=== PATIENT | female | born 1995 | race Caucasian/White ===

== ENCOUNTER 2017-12-13 15:56 | Emergency (ER) | payer OTHER ==
[2017-12-13 16:00] VITALS: BP 120/84; BMI 20.7
[2017-12-13] MEDS ORDERED: ZOFRAN INJ 4 MG VIAL ONE (16:11)
[2017-12-13] MEDS ORDERED: TORADOL 30 MG VIAL ONE (16:11)
[2017-12-13] MEDS ORDERED: ZOFRAN INJ 4 MG VIAL IVP ONE (16:16)
[2017-12-13] MEDS ORDERED: NS 1000 ML 1,000 ML IV ONE (16:16)
[2017-12-13] MEDS ORDERED: TORADOL 30 MG VIAL IVP ONE (16:17)
--- NOTE | 2017-12-13 16:32 | DR.GENAD ---
HPI - PCP Primary Care Physician: PRAKASH OSPINA - Complaint/Symptoms Chief Complaint Doctors Comments: Patient presents with complaint of probable kidney stones of the right side. She had stones in 2012, lithotrypsy performed in [place]. She admits to similar pain as previous. Right side pain unable to void. Pain 10/10, sharp, continuous. Chief Complaint:: PATIENT STATED THAT SHE IS HAVING BACK PAIN. SHE STATED THAT SHE HAS HAD KIDNEY STONES REGULAR IN THE PAST. THIS ALL STARTED A HOUR AGO. - Source History Provided: Patient - Mode of Arrival Mode of Arrival: Ambulatory - Timing Onset of Chief Complaint: 12/13/17 PMH - PMH Past Medical History: Yes Past Medical History: Kidney Stones Past Surgical History: No - Family History History of Family Medical Conditions: Yes Family Medical History Comment: KIDNEY STONES - Social History Does patient currently use any type of tobacco product: No Have you used tobacco products in the last 12 months: No Type of Tobacco Use: None Does any household member use tobacco: No Alcohol Use: Occasionally Do you use any recreational Drugs:: No Lives With: Family Lives Where: Home - infectious screening In the last 2 months have you had wt loss of >10#?: NO Have you had fever, night sweats or hemotysis?: No Have you traveled outside the country in the last 6 months?: No Isolation: Standard ROS - Review of Systems Eyes: No Symptoms Reported ENTM: No Symptoms Reported Respiratoy: No Symptoms Reported Cardiovascular: No Symptoms Reported Gastrointestinal/Abdominal: No Symptoms Reported Genitourinary: No Symptoms Reported Neurological: No Symptoms Reported Musculoskeletal: No Symptoms Reported Integumentary: No Symptoms Reported Hematologic/Lymphatic: No Symptoms Reported Endocrine: No Symptoms Reported Psychiatric: No Symptoms Reported All Other Systems: Reviewed and Negative PE - Vital Signs Vitals: Temperature 98.2 F Pulse Rate 103 Respiratory Rate 20 Blood Pressure 120/84 O2 Sat by Pulse Oximetry 98 - General General Appearance: Alert, In No Apparent Distress - Head Head Exam: Normal Inspection, Atraumatic - Eyes Eye exam: Normal Appearance, PERRL, EOMI - ENT ENT Exam: Normal Exam External Ear Exam: Normal External Inspection TM/Canal Exam: Bilateral Normal Nose Exam: Normal Nose Exam Mouth Exam: Normal Inspection Throat Exam: Normal Inspection - Neck Neck Exam: Normal Inspection, Full ROM - Chest Chest Inspection: Normal Inspection - Respiratory Respiratory Exam: Normal Lung Sounds Bilat, Accessory Muscle Use Respiratory Exam: Bilateral Clear to Auscultation - Cardiovascular Cardiovascular Exam: Regular Rate, Normal Rhythm - Abdominal Exam Abdominal Exam: Normal Inspection Abdominal Tenderness: negative: RUQ, RLQ, LUQ, LLQ, Epigastrium, Suprapubic, Diffuse, Mild, Moderate, Severe, Other - Extremities Extremities Exam: Normal Inspection - Back Back Exam: Normal Inspection, (R) CVA Tenderness - Neurologic Neurological Exam: Alert, Oriented X3, CN II-XII Intact - Psychiatric Psychiatric Exam: Normal Affect, Normal Mood - Skin Skin Exam: Warm, Dry, Intact Course - Treatment Treatment: Morphine 4mg, toradol 30mg IV - Reevaluation 1st: Improved ROR - XRAY XRAY Interpreted by: Radiologist (CT Abd/Pel: 2mm stone in the distal right ureter without significant obstructive uropathy. Multiple nonobstructing right renal calculi) - Diagnosis Discharge Problem: Kidney stone - Discharge Plan Condition: Stable - Follow ups/Referrals Follow ups/Referrals: PRAKASH OSPINA [Primary Care Provider] - 3 days - Instructions
--- NOTE | 2017-12-13 16:36 | CT ---
HISTORY: Right flank pain, nausea Study: CT abdomen and pelvis without contrast Comparison: 06/17/2013 Technique: Multiple axial images of the abdomen and pelvis were obtained without IV contrast. Dose reduction t echniques including Automated Exposure Control (AEC) and adjustment of mA and kV were utilized. Findings: Please note evaluation is limited without use of IV contrast. A partially visualized bilateral breast implants. The lung bases are clear. Multiple nonobstructing right renal calculi are seen. There is a 2 mm calcification in the distal right ureter without signif icant obstructive uropathy. The left kidney and ureter are normal. The gallbladder is normal. No free intraperitoneal air. No evidence of intestinal obstruction or inflammation. The appendix is n ormal. No free fluid identified. The soft tissues and osseous structures are unremarkable. Limited evaluation of vascular structures d ue to lack of contrast. No pathologically enlarged lymph nodes are identified. The urinary bladder is decompressed. IMPRESSION: 1. 2 mm stone in the distal right ureter without significant obstructive uropathy. 2. Multiple nonobstructing right renal calculi. Reported By:
== END 2017-12-13 17:16 | disposition home or self-care (01) ==
LOC: ER 16:07
DX: N20.0 Calculus of kidney (principal)
CPT/HCPCS: 74176; 96365; 96374; 96375; 99282; 99283; J1885; J2405

== ENCOUNTER 2021-02-28 08:25 | Inpatient (IN) ==
[2021-02-28] MEDS ORDERED: NS 1000 ML 1,000 ML ONE (08:56)
[2021-02-28] MEDS: NS 1000 ML 1,000 ML IV SCH ×2 (09:00→14:40)
[2021-02-28] MEDS ORDERED: DILAUDID INJ ONE (09:27)
[2021-02-28] MEDS: DILAUDID INJ IVP PRN ×2 (09:36→23:30)
[2021-02-28] MEDS: FORTAZ or TAZICEF VIAL INJ 1 G in NS 100 ML IV + SPIKE MINIBAG* 100 ML IV SCH ×3 (09:50→21:43)
[2021-02-28 09:58] LABS: BASOPHILS % (AUTO) 0.2 % (0.2-1.0); HEMATOCRIT 33.1 % (36.0-47.0); HEMOGLOBIN 10.9 g/dL (12.0-16.0); LYMPHOCYTES # (AUTO) 1.4 X10^3/uL (1.3-2.9); LYMPHOCYTES % (AUTO) 9.8 % (21.0-51.0); MEAN CORPUSCULAR HEMOGLOBIN 28.7 pg (27.0-34.0); MEAN PLATELET VOLUME 8.5 fL (7.4-11.0); MONOCYTES # (AUTO) 1.2 x10^3/uL (0.3-0.8); MONOCYTES % (AUTO) 8.4 % (0.0-13.0); NEUTROPHILS # (AUTO) 11.7 x10^3/uL (2.2-4.8); NEUTROPHILS % (AUTO) 81.6 % (42.0-75.0); PLATELET COUNT 154 X10^3/uL (150.0-450.0); RED BLOOD COUNT 3.81 X10^6/uL (3.5-5.4); RED CELL DISTRIBUTION WIDTH 13.6 % (11.6-16.5); WHITE BLOOD COUNT 14.3 X10^3/uL (3.6-10.0)
[2021-02-28 10:11] LABS: ALANINE AMINOTRANSFERASE 13 Units/L (12-78); ALBUMIN 2.9 g/dL (3.4-5.0); ALKALINE PHOSPHATASE 35 Units/L (46-116); ASPARTATE AMINO TRANSFERASE 12 Units/L (15-37); BLOOD UREA NITROGEN 6 mg/dL (7-18); CALCIUM 7.9 mg/dL (8.5-10.1); CARBON DIOXIDE 25.8 mmol/L (21-32); CHLORIDE 105 mmol/L (98-107); COR CA(FOR HYPOALB) 8.8 mg/dL (8.5-10.1); CREATININE 0.79 mg/dL (0.55-1.02); SODIUM 139 mmol/L (136-145); TOTAL PROTEIN 6.6 g/dL (6.4-8.2); eGFR NON BLACK RACES > 60 (>60)
[2021-02-28] MEDS: LEVAQUIN PREMIX IV 500 MG 500 MG/100 ML BAG IV SCH (10:32)
[2021-02-28 12:34] LABS: BILIRUBIN,URINE NEGATIVE (NEGATIVE); BLOOD/HEMOGLOBIN,URINE 2+ (NEGATIVE); GLUCOSE, URINE NEGATIVE (NEGATIVE); KETONES,URINE 3+ (NEGATIVE); LEUKOCYTE ESTERASE ,URINE 1+ (NEGATIVE); NITRITES,URINE NEGATIVE (NEGATIVE); PROTEIN,URINE 1+ (NEGATIVE); UROBILINOGEN,URINE NORMAL (NORMAL)
[2021-02-28 12:35] LABS: APPEARANCE,URINE SLIGHTLY HAZY (CLEAR); COLOR,URINE YELLOW (YELLOW)
[2021-02-28 12:36] LABS: BACTERIA,URINE TRACE /HPF (NEGATIVE); SQUAMOUS EPITHELIAL CELL,UR FEW /HPF (NEGATIVE)
--- NOTE | 2021-02-28 13:06 | DR.H&P ---
H&P - History & Physical for Day of: H&P Date: 02/28/21 - Chief Complaint Chief Complaint: ABDOMINAL PAIN, FEVER - History of Present Illness History of Present Illness: IS A 25 YEAR OLD PATIENT OF OURS WHO PRESENTED A DIRECT ADMISSION DUE TO COMPLAINTS OF SEVERE LEFT SIDED FLANK PAIN X 1 DAY AND FEVER. PATIENT DESCRIBES PAIN SHARP, RADIATES TO THE LEFT GROIN, AND IS CURRENTLY RATED A 7/10 ON ARRIVAL. SHE ADMITS TO SOME NAUSEA AND VOMITING. SHE DENIES HEMATRURIA. SHE WAS SEEN IN THE ER ONE DAY PRIOR. AN ABDOMEN/PELVIS CT WITH IV CONTRAST WAS OBTAINED AT THAT TIME AND REVEALED: 1. Nonspecific mild perinephric streaky changes around the left kidney, with heterogeneous appearance of the lateral middle and lower pole renal cortical parenchyma, of uncertain etiology (new findings). Consider follow-up postcontrast CT to rule out occult pyelonephritis as clinically suspected. 2. No evidence for renal stone disease or obstructive uropathy. 3. No evidence for acute appendicitis, bowel herniation/obstruction, colitis or diverticulitis seen. 4. Abundant fecal material is seen within the large bowel loops; nonspecific finding; rule out constipation. 5. Small amount of free fluid within the dependent pelvis/cul-de-sac (a stable finding); DDX includes (but is not limited to) physiologic change and/or sequel of occult ovarian cyst leakage or rupture in the appropriate clinical setting. Clinical correlation is advised. 6. No free air, mass lesions, or lymphadenopathy seen. SHE DOES HAVE A HISTORY OF NEPHROLITHIASIS. ON ARRIVAL TO THE HOSPITAL TODAY, VITALS WERE 99.3-117-20-99%-121/72. LABS WERE OBTAINED. ABNORMAL LAB VALUES INCLUDE THE FOLLOWING: WBC 14.3, HGB 10.9, HCT 33.1, BUN 6, CALCIUM 7.9, AST 12, ALK PHOS 35, CRP 173.90, ALBUMIN 2.9. URINALYSIS REVEALED: WBC 5-10, RBC 3-5, LEUKOCYTES 1+, BACTERIA TRACE, OCCULT BLOOD 2+, KETONES 3+, URINE PROTEIN 1+. A URINE CULTURE AND BLOOD CULTURES WERE SET UP. COVID-19 NEGATIVE. SHE WAS STARTED ON NORMAL SALINE AT 80 ML/HR, LEVAQUIN 500MG IV DAILY, FORTAZ 1G IV Q8H, DILAUDID 1MG IV Q4H PRN, TORADOL 30MG IV Q6H PRN, AND ZOFRAN 4MG IV Q4H PRN FOR TREATMENT OF PYELONEPHRITIS. OTHERWISE, WE PLAN TO FOLLOW UP WITH AM LABS AND CONTINUE TO MONITOR. TIME SPENT ON CLINICAL ASSESSMENT, REVIEWING LABS AND IMAGING, DECISION MAKING, AND DOCUMENTATION GREATER THAN 75 MINUTES. - Past Medical History Past Medical History: Kidney Stones - Past Surgical History Surgical History: Other Additional Surgical History: BREAST AUGMENTATION - Medications Home Medications: No Known Drug Allergies Allergy (Verified 02/27/21 15:20) - Review of Systems Constitutional: Fever Eyes: No Symptoms Reported ENT: No Symptoms Reported Respiratory: No Symptoms Reported Cardiovascular: No Symptoms Reported Gastrointestinal: See HPI, Nausea, Vomiting, Abdominal Pain Genitourinary: No Symptoms Reported Musculoskeletal: No Symptoms Reported Skin: No Symptoms Reported Neurological: No Symptoms Reported - Physical Exam Vital Signs: Temperature 99.3 F Pulse Rate [Left Radial] 117 Respiratory Rate 18 Blood Pressure [Right Arm] 112/71 O2 Sat by Pulse Oximetry 99 Oriented: Normal Eyes: Normal Ear: Normal Nose: Normal Throat: Normal Respiratory: Clear Throughout Cardiovascular: Tachycardia : Normal Auscultation: Bowel Sounds: Normal Palpation: Normal Tenderness: LLQ, Moderate Skin: Normal Musculoskeletal: Normal Psychiatric: Normal Mood Description: Calm Affect: Normal Speech Pattern: Clear - Assessment/Plan (1) Pyelonephritis Status: Acute Plan: ADMIT, NORMAL SALINE AT 80 ML/HR, LEVAQUIN 500MG IV DAILY, FORTAZ 1G IV Q8H, DILAUDID 1MG IV Q4H PRN, TORADOL 30MG IV Q6H PRN, AND ZOFRAN 4MG IV Q4H PRN (2) Fever Qualifiers: Fever type: due to other condition Qualified Code(s): R50.81 - Fever presenting with conditions classified elsewhere Status: Acute - Allergies Allergies/Adverse Reactions: Allergies Allergy/AdvReac Type Severity Reaction Status Date / Time No Known Drug Allergies Allergy Verified 02/27/21 15:20
[2021-02-28] MEDS: MILK OF MAGNESIA PO SCH ×3 (14:33→20:33)
[2021-02-28] MEDS: TORADOL 30 MG VIAL IVP PRN ×2 (14:40→20:33)
[2021-02-28] MEDS: ZOFRAN INJ 4 MG VIAL IVP PRN ×2 (16:15→20:34)
[2021-02-28] MEDS ORDERED: PHENERGAN TAB 25 MG PO ONE (17:19)
[2021-02-28] MEDS: PHENERGAN TAB 25 MG PO PRN ×2 (17:22→23:30)
[2021-02-28] MEDS: COLACE CAP 100 MG PO SCH (20:34)
[2021-03-01] MEDS: NS 1000 ML 1,000 ML IV SCH ×4 (00:10→16:20)
[2021-03-01] MEDS: FORTAZ or TAZICEF VIAL INJ 1 G in NS 100 ML IV + SPIKE MINIBAG* 100 ML IV SCH ×3 (05:01→21:00)
[2021-03-01 05:53] LABS: BASOPHILS % (AUTO) 0.1 % (0.2-1.0)
[2021-03-01 05:58] LABS: EOSINOPHILS # (AUTO) 0.1 x10^3/uL (0.0-0.2); EOSINOPHILS % (AUTO) 0.7 % (0.9-2.9); HEMATOCRIT 31.4 % (36.0-47.0); HEMOGLOBIN 10.5 g/dL (12.0-16.0); LYMPHOCYTES # (AUTO) 1.8 X10^3/uL (1.3-2.9); LYMPHOCYTES % (AUTO) 22.7 % (21.0-51.0); MEAN CORPUSCULAR HEMOGLOBIN 29.4 pg (27.0-34.0); MEAN CORPUSCULAR HGB CONC 33.3 g/dL (33.0-35.0); MEAN CORPUSCULAR VOLUME 88.4 fL (80.0-100.0); MEAN PLATELET VOLUME 9.1 fL (7.4-11.0); MONOCYTES # (AUTO) 0.8 x10^3/uL (0.3-0.8); MONOCYTES % (AUTO) 10.4 % (0.0-13.0); NEUTROPHILS # (AUTO) 5.3 x10^3/uL (2.2-4.8); NEUTROPHILS % (AUTO) 66.1 % (42.0-75.0); PLATELET COUNT 144 X10^3/uL (150.0-450.0); RED BLOOD COUNT 3.56 X10^6/uL (3.5-5.4)
[2021-03-01 06:04] LABS: ALANINE AMINOTRANSFERASE 12 Units/L (12-78); ALBUMIN 2.5 g/dL (3.4-5.0); ALKALINE PHOSPHATASE 34 Units/L (46-116); ASPARTATE AMINO TRANSFERASE 10 Units/L (15-37); BLOOD UREA NITROGEN 8 mg/dL (7-18); CALCIUM 7.8 mg/dL (8.5-10.1); CARBON DIOXIDE 26.7 mmol/L (21-32); CHLORIDE 109 mmol/L (98-107); CREATININE 0.82 mg/dL (0.55-1.02); SODIUM 144 mmol/L (136-145); eGFR NON BLACK RACES > 60 (>60)
[2021-03-01] MEDS: TORADOL 30 MG VIAL IVP PRN ×2 (07:47→20:05)
[2021-03-01] MEDS: LEVAQUIN PREMIX IV 500 MG 500 MG/100 ML BAG IV SCH (08:08)
[2021-03-01] MEDS: MILK OF MAGNESIA PO SCH ×3 (08:08→16:20)
[2021-03-01] MEDS: COLACE CAP 100 MG PO SCH (08:08)
[2021-03-01] MEDS: DILAUDID INJ IVP PRN (12:06)
[2021-03-01] MEDS: ZOFRAN INJ 4 MG VIAL IVP PRN (18:10)
[2021-03-02] MEDS: DILAUDID INJ IVP PRN (01:05)
[2021-03-02] MEDS: NS 1000 ML 1,000 ML IV SCH ×3 (01:08→14:07)
[2021-03-02] MEDS: TORADOL 30 MG VIAL IVP PRN (05:33)
[2021-03-02] MEDS: FORTAZ or TAZICEF VIAL INJ 1 G in NS 100 ML IV + SPIKE MINIBAG* 100 ML IV SCH ×2 (05:44→13:46)
[2021-03-02 06:54] LABS: BASOPHILS % (AUTO) 0.3 % (0.2-1.0); EOSINOPHILS # (AUTO) 0.1 x10^3/uL (0.0-0.2); EOSINOPHILS % (AUTO) 1.2 % (0.9-2.9); HEMATOCRIT 29.2 % (36.0-47.0); HEMOGLOBIN 9.5 g/dL (12.0-16.0); LYMPHOCYTES # (AUTO) 1.9 X10^3/uL (1.3-2.9); LYMPHOCYTES % (AUTO) 29.1 % (21.0-51.0); MEAN CORPUSCULAR HEMOGLOBIN 28.7 pg (27.0-34.0); MEAN CORPUSCULAR HGB CONC 32.5 g/dL (33.0-35.0); MEAN CORPUSCULAR VOLUME 88.4 fL (80.0-100.0); MEAN PLATELET VOLUME 9.5 fL (7.4-11.0); MONOCYTES # (AUTO) 0.7 x10^3/uL (0.3-0.8); MONOCYTES % (AUTO) 10.2 % (0.0-13.0); NEUTROPHILS # (AUTO) 3.9 x10^3/uL (2.2-4.8); NEUTROPHILS % (AUTO) 59.2 % (42.0-75.0); PLATELET COUNT 137 X10^3/uL (150.0-450.0); RED BLOOD COUNT 3.31 X10^6/uL (3.5-5.4); RED CELL DISTRIBUTION WIDTH 13.9 % (11.6-16.5); WHITE BLOOD COUNT 6.5 X10^3/uL (3.6-10.0)
[2021-03-02 07:13] LABS: ALANINE AMINOTRANSFERASE 17 Units/L (12-78); ALBUMIN 2.4 g/dL (3.4-5.0); ALKALINE PHOSPHATASE 35 Units/L (46-116); ASPARTATE AMINO TRANSFERASE 13 Units/L (15-37); BLOOD UREA NITROGEN 7 mg/dL (7-18); CALCIUM 7.6 mg/dL (8.5-10.1); CARBON DIOXIDE 27.8 mmol/L (21-32); CHLORIDE 109 mmol/L (98-107); COR CA(FOR HYPOALB) 8.9 mg/dL (8.5-10.1); CREATININE 0.71 mg/dL (0.55-1.02); SODIUM 143 mmol/L (136-145); TOTAL PROTEIN 5.6 g/dL (6.4-8.2); eGFR NON BLACK RACES > 60 (>60)
[2021-03-02] MEDS: LEVAQUIN PREMIX IV 500 MG 500 MG/100 ML BAG IV SCH (08:45)
[2021-03-02 12:25] VITALS: BP 105/73
== END 2021-03-02 15:30 | disposition home or self-care (01) | DRG 690 ==
LOC: OBS → OBSVTOIN 08:44 → MED/SURG 14:18
PROVIDERS: ADMIT Internal Medicine; ATTEND Internal Medicine
DX: R79.82 Elevated C-reactive protein (CRP); R11.2 Nausea with vomiting, unspecified; R50.81 Fever presenting with conditions classified elsewhere; Z20.822 Contact with and (suspected) exposure to COVID-19; R10.84 Generalized abdominal pain; Z87.442 Personal history of urinary calculi; N12 Tubulo-interstitial nephritis, not specified as acute or chronic